=== PATIENT | female | born 1990 | race Two or more races ===

== ENCOUNTER → 2019-08-01 | Outpatient (CLI) | payer OTHER | END | disposition home or self-care (01) | LOC: PRENATAL 15:00 | DX: O28.1 Abnormal biochemical finding on antenatal screening of mother (principal); O35.3XX0 Maternal care for (suspected) damage to fetus from viral disease in mother, not applicable or unspecified; Z36.89 Encounter for other specified antenatal screening; O34.211 Maternal care for low transverse scar from previous cesarean delivery ==

== ENCOUNTER 2019-09-03 19:22 | Inpatient (IN) | payer OTHER ==
[~2019-09-03] VITALS: Ht 165.1 cm; Wt 81.6 kg
[2019-09-03] MEDS ORDERED: PRENATAL TABLE1 EAC1 PO (20:22)
== END 2019-09-05 14:59 | disposition designated cancer center or children's hospital (05) | DRG 833 ==
LOC: OBS/DEL 19:22 → LDR 09-04 17:49
PROVIDERS: ADMIT Obstetrics & Gynecology Obstetrics; ATTEND Obstetrics & Gynecology Obstetrics
PROC: 4A0HXFZ Measurement of Products of Conception, Cardiac Rhythm, External Approach (ICD-10-PCS; principal; 2019-09-04)
PROC: BY4CZZZ Ultrasonography of Second Trimester, Single Fetus (ICD-10-PCS; 2019-09-04)
DX: O13.2 Gestational [pregnancy-induced] hypertension without significant proteinuria, second trimester (principal); O26.842 Uterine size-date discrepancy, second trimester; O36.5920 Maternal care for other known or suspected poor fetal growth, second trimester, not applicable or unspecified